=== PATIENT | female | born 1935 | race Caucasian/White ===

== ENCOUNTER → 2017-02-15 | Day surgery (SDC) | payer OTHER ==
[~2017-02-15] VITALS: Ht 167.6 cm; Wt 75.0 kg
[~2017-02-15] MED LIST: ALPR.5 PO; BUPIVACAINE HCL PF 0.5% 30 ML VIAL ONE; CHLORHEXIDINE GLUCONATE 2 % 1 PACK (2 CLOTHS) TOPICAL PRN; DEXAMETHASONE SOD PHOS 4 MG/ML VIAL IV ONE; ESTROGENS CONJUGATED VAG CREA 15 APPL/30 GM TUBE ONE; FAMOTIDINE 20 MG/2 ML VIAL ONE; GLYCOPYRROLATE 1 MG/5 ML SYRINGE IV PUSH ONE; LACTATED RINGER'S 1000 ML INJ 1,000 ML IV ONE; LACTATED RINGER'S 1000 ML IV PRN; LEVO50TA4 PO; LIDOCAINE HCL 1% PF 5 ML SYRINGE OTHER ONE; METOPROLOL TARTRATE 25 MG TAB PO PRN; MIDAZOLAM HCL 2 MG/2 ML VIAL ONE; ONDANSETRON HCL 4 MG/2 ML VIAL IV PUSH ONE; PHENYLEPH/NS 1000 MCG/10 ML SYR IV ONE; POVIDONE IODINE 5% (ANTISEPSIS KIT) 4 APPLICATIONS EACH NARE PRN; PROPOFOL 200 MG/20 ML AMP IV ONE; SODIUM CHLORID 0.9% 500 ML IV PRN; SODIUM CHLORIDE 0.9% 20 ML VIAL ONE; TRAM50TA PO; VASOPRESSIN 20 UNITS/ML VIAL (IVTITR) ONE; ceFAZolin 1,000 MG/NS 100 ML IV SCH; ePHEDrine/NS 25 MG/5 ML SYRINGE IV ONE; oxyCODONE/ACETAMINOPHEN 5 MG/325 MG TAB ONE
[2017-02-15 10:43] VITALS: PULSE 81
[2017-02-15 11:30] VITALS: TEMP 98
[2017-02-15 13:45] VITALS: BP 125/63; PULSE 62; RESP 14; O2SAT 97
--- NOTE | 2017-02-20 10:31 | PD.OP ---
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 Pérez Surgeon: Vivienne Ely C Software Engineer(s): Jose Resident Surgeon: n/a Operation and Findings: Indications: [This 81 y/o is very uncomfortable with protruding cystocele and vaginal vault. She understands intercourse is not possible after this procedure. -] Procedure: After general anesthesia was induced, and Dr. Pérez administered a pudendal block, the patient was positioned in low stirrups, and prepped with Betadine. SCD's were on and IV antibiotics were administered. After time-out the case was begun. The vaginal cuff was grasped with long Allis clamps, and dilute vasopressin solution was injected submucosally to help develop planes and limit bleeding. A #15 scalpel, Metzenbaum scissors and gauze were employed as needed to perform tedious dissection and excision of full-thickness mucosa. No rectal or urological defects were created. Blood loss was controlled with suture or cautery, as it was encountered. Starting at the denuded cuff, the mucosal edges were brought together, anterior to posterior, thus imbricating the cuff, using interrupted 3-0 absorbable suture. Then followed another row of sutures from left sulcus, across the denuded area to the right sulcus. This was continued with sutures spaced approximately .5 cm apart in rows until the vaginal axis was anatomically replaced, and the most inferior row of sutures brought the introital mucosa together, effectively closing the mucosal defect created. Care was taken to appose the anterior and vaginal castillo without creating deadspace, nor plicating. The patient was returned to supine position, awakened and left the OR breathing on her own. Sponge, needle and instrument counts were correct. Vivienne Ely MD Feb 20, 2017 10:31
== END | disposition home or self-care (01) ==
LOC: PHSDC 06:11
PROVIDERS: ATTEND Obstetrics & Gynecology
DX: N99.3 Prolapse of vaginal vault after hysterectomy (principal); Z90.710 Acquired absence of both cervix and uterus
CPT/HCPCS: 00942; 57120; J0690; J1100; J2250; J2370; J2405; J3010; J7120